=== PATIENT | female | born 1960 | race Caucasian/White ===

== ENCOUNTER 2016-05-31 21:26 | Emergency (ER) | payer OTHER ==
[2016-05-31 21:36] VITALS: BP 145/90; PULSE 72; TEMP 97.5; BMI 29.2
--- NOTE | 2016-05-31 22:41 | PDOC ---
History of Present Illness - General Chief Complaint: Nausea/Vomiting Stated Complaint: VOMITING Time Seen by Provider: 05/31/16 22:10 - History of Present Illness Initial Comments: 05/31/16 22:39 CHIEF COMPLAINT: vomiting x 1 week. HISTORY OF PRESENT ILLNESS: 56 yo F with hx of hypothyroidism, HTN presents to ED with vomiting x 1 week and a "tight sensation to my throat." Patient denies fever, abdominal pain, diarrhea and states she has regular bowel movements daily. She was recently prescribed Omeprazole bid but it has not given her any relief. She denies fever, chills, diarrhea, constipation, any abdominal pain. She states she has daily normal bowel movements. No recent travel or sick contacts. PAST MEDICAL HISTORY: as per HPI FAMILY HISTORY: Denies SOCIAL HISTORY: Denies tobacco, alcohol, illicit drug use. SURGICAL HISTORY: hystercetomy ALLERGIES: No known drug allergies REVIEW OF SYSTEMS General/Constitutional: Denies fever or chills. Denies weakness, weight change. HEENT: "Tightness of throat." Denies change in vision. Denies ear pain or discharge. Denies sore throat. Cardiovascular: Denies chest pain or shortness of breath. Respiratory: Denies cough, wheezing, or hemoptysis. Gastrointestinal: Vomiting x 1 week. diarrhea or constipation. Denies rectal bleeding. Genitourinary: Denies dysuria, frequency, or change in urination. Musculoskeletal: Denies joint or muscle swelling or pain. Denies neck or back pain. Skin and breasts: Denies rash or easy bruising. Neurologic: Denies headache, vertigo, loss of consciousness, or loss of sensation. PHYSICAL EXAM General Appearance: Well-appearing, appropriately dressed. No apparent distress , no intoxication. HEENT: EOMI, PERRLA, normal ENT inspection, normal voice, TMs normal, pharynx normal. No swelling to mouth, tongue, lips, uvula, tonsils. No erythema or exudate to oropharynx. No conjunctival pallor. No photophobia, scleral icterus. Respiratory/Chest: Lungs CTAB. Cardiovascular: RRR. S1, S2. Gastrointestinal/Abdominal: Normal bowel sounds. Abdomen soft, non-distended. No tenderness or rebound tenderness. No organomegaly, pulsatile mass, guarding , hernia, hepatomegaly, splenomegaly. Lymphatic: No adenopathy, tenderness. Musculoskeletal/Extremities: Normal inspection.No tenderness to extremities, pedal edema, swelling, erythema or deformity. Integumentary: Appropriate color, dry, warm. No cyanosis, erythema, jaundice or rash Neurologic: retort setter II-XII intact. Fully oriented, alert. Appropriate mood/affect. Motor strength 5/5. No appreciable EOM palsy, facial droop or sensory deficit. 06/01/16 00:32 Past History - Past Medical History Allergies/Adverse Reactions: Allergies Allergy/AdvReac Type Severity Reaction Status Date / Time meperidine HCl [From Demerol] Allergy Rash Verified 05/31/16 21:34 Penicillins Allergy Hives Verified 05/31/16 21:34 Home Medications: Ambulatory Orders Levothyroxine [Synthroid -] 50 mcg PO DAILY 09/08/14 Lisinopril [Prinivil -] 20 mg PO DAILY 09/08/14 Esomeprazole Magnesium [Nexium 24Hr] 20 mg PO DAILY #14 tablet. 06/01/16 Ondansetron [Zofran *Odt*] 8 mg SL TID PRN #21 od.tablet 06/01/16 HTN: Yes - Psycho/Social/Smoking Cessation Hx Anxiety: No Suicidal Ideation: No Smoking History: Never smoked Have you smoked in the past 12 months: No Information on smoking cessation initiated: No Hx Alcohol Use: No Drug/Substance Use Hx: No Substance Use Type: None *Physical Exam - Vital Signs Last Vital Signs Temp Pulse Resp BP Pulse Ox 97.5 F L 72 14 145/90 98 05/31/16 21:34 05/31/16 21:34 05/31/16 21:34 05/31/16 21:34 05/31/16 21:34 Medical Decision Making - Medical Decision Making 06/01/16 00:34 56 yo F with hx of hypothyroidism and HTN presents to ED with vomiting x 1 week. Abdomen is diffusely nontender on deep palpation, patient is afebrile. -Zofran 4 mg IV -IVF -Pepcid Patient states she is feeling better although she states "I feel like my throat still feels tight." HEENT exam unremarkable - patient has no swelling of uvula, tongue, tonsils. Discussed case with attending MD Bills, who suggest viscous lidocaine and Maalox for patient and discharge with f/u with GI for endoscopy. Advised patient to follow up with GI for endoscopy and further evaluation of globus sensation. Advised patient of signs and symptoms for return to ER; patient verbalized understanding and agrees to plan. *DC/Admit/Observation/Transfer Diagnosis at time of Disposition: Globus sensation - Discharge Dispostion Disposition: HOME Condition at time of disposition: Stable Admit: No - Prescriptions Prescriptions: Esomeprazole Magnesium [Nexium 24Hr] 20 mg PO DAILY #14 tablet. Ondansetron [Zofran *Odt*] 8 mg SL TID PRN #21 od.tablet PRN Reason: Nausea And/Or Vomiting - Referrals Referrals: Krista Fisher MD [Primary Care Provider] - Anthony Calero DO [Staff Physician] - - Patient Instructions Printed Discharge Instructions: DI for Vomiting -- Adult Additional Instructions: Please take medications as prescribed and follow up with neck band operator as discussed. If you experience difficulty breathing or swallowing, abdominal pain , fever, diarrhea, swelling of the lips, mouth, throat, or tongue, or any new or worsening symptoms, please return to the ER.
[2016-05-31] MEDS ORDERED: ONDANSETRON 4 MG/2 ML VIAL IVPUSH ONE (22:43)
[2016-05-31] MEDS ORDERED: FAMOTIDINE 20 MG/50 ML IVPB 50 ML IVPB ONE ×2 (22:43→22:50)
[2016-05-31] MEDS ORDERED: SODIUM CHLORIDE 0.9% 1000 ML INFUS.BAG IV ONE (22:43)
[2016-06-01] MEDS ORDERED: LIDOCAINE VISCOUS 2% ORAL/TOP 20 ML UNIT-DOSE CUP MM ONE (00:37)
[2016-06-01] MEDS ORDERED: MAG HYDROX/AL HYDROX/SIMETH 30 ML UNIT-DOSE CUP PO ONE (00:37)
[2016-06-01] MEDS ORDERED: MAG HYDROX/AL HYDROX/SIMETH 30 ML UNIT-DOSE CUP ONE (00:44)
== END 2016-06-01 00:58 | disposition home or self-care (01) ==
LOC: JER 21:26
DX: F45.8 Other somatoform disorders (principal)
CPT/HCPCS: 99282-25

== ENCOUNTER 2017-10-09 20:55 | Emergency (ER) | payer OTHER ==
[2017-10-09 21:09] VITALS: BP 143/95; PULSE 75; TEMP 98; BMI 29.9
--- NOTE | 2017-10-09 23:50 | PDOC ---
History of Present Illness - General Chief Complaint: Allergic Reaction Stated Complaint: ALLERIC REACTION Time Seen by Provider: 10/09/17 22:29 - History of Present Illness Initial Comments: 57 year old female with recent asthma exacerbation presenting with sore throat and "throat pressure" . Denies issues breathing, swallowing food, or with any daily activities but simple states there is a pressure in her throat occasionally. Denies fevers, chills, nausea, vomiting, diarrhea, constipation, or other symptoms. 10/09/17 23:43 Past History - Past Medical History Allergies/Adverse Reactions: Allergies Allergy/AdvReac Type Severity Reaction Status Date / Time meperidine HCl [From Demerol] Allergy Rash Verified 10/09/17 21:10 Penicillins Allergy Hives Verified 10/09/17 21:10 Home Medications: Ambulatory Orders Levothyroxine [Synthroid -] 50 mcg PO DAILY 09/08/14 Lisinopril [Prinivil -] 20 mg PO DAILY 09/08/14 Esomeprazole Magnesium [Nexium 24Hr] 20 mg PO DAILY #14 tablet. 06/01/16 Ondansetron [Zofran *Odt*] 8 mg SL TID PRN #21 od.tablet 06/01/16 Albuterol 0.083% Nebulizer Patricia [Ventolin 0.083%] 1 neb NEB Q4H 10/09/17 Benzocaine/Menthol [Cepacol Sore Throat Lozenge] 1 each MM BID PRN 5 Days #10 lozenge 10/09/17 HTN: Yes - Immunization History Immunization Up to Date: No - Suicide/Smoking/Psychosocial Hx Smoking History: Never smoked Have you smoked in the past 12 months: No Information on smoking cessation initiated: No Hx Alcohol Use: No Drug/Substance Use Hx: No Substance Use Type: None Review of Systems - Review of Systems Constitutional: No: Chills, Diaphoresis, Fever HEENTM: No: Eye Pain, Blurred Vision, Tearing Respiratory: No: Cough, Orthopnea, Shortness of Breath, Wheezing Cardiac (ROS): No: Chest Pain, Edema, Irregular Heart Rate ABD/GI: No: Diarrhea, Nausea, Vomiting : No: Burning, Dysuria, Discharge Musculoskeletal: No: Back Pain, Muscle Pain, Muscle Weakness Integumentary: No: Flushing, Lesions, Lumps Neurological: No: Headache, Numbness Psychiatric: No: Mood Swings, Change in Appetite *Physical Exam - Vital Signs Last Vital Signs Temp Pulse Resp BP Pulse Ox 98.0 F 75 16 143/95 100 10/09/17 21:07 10/09/17 21:07 10/09/17 21:07 10/09/17 21:07 10/09/17 21:07 - Physical Exam General Appearance: Yes: Nourished, Appropriately Dressed. No: Apparent Distress HEENT: positive: EOMI, RINA, Normal Voice, Symmetrical. negative: Normal ENT Inspection, Pharynx Normal (erythematous oropharynx with slight peritonsilalr swelling. Left cervical lymph node) Neck: positive: Trachea midline, Normal Thyroid, Supple, Lymphadenopathy (L). negative: Tender, Rigid Respiratory/Chest: positive: Lungs Clear, Normal Breath Sounds. negative: Chest Tender, Respiratory Distress, Accessory Muscle Use Cardiovascular: positive: Regular Rhythm, Regular Rate Gastrointestinal/Abdominal: positive: Normal Bowel Sounds, Flat, Soft. negative : Tender Lymphatic: positive: Adenopathy. negative: Tenderness Musculoskeletal: positive: Normal Inspection. negative: Decreased Range of Motion Extremity: positive: Normal Capillary Refill, Normal Inspection, Normal Range of Motion. negative: Tender Integumentary: positive: Normal Color, Dry, Warm Neurologic: positive: Fully Oriented, Alert, Normal Mood/Affect, Normal Response , Motor Strength 5/5 ED Treatment Course - ADDITIONAL ORDERS Additional order review: 10/09/17 22:50 Group A Strep Rapid Antigen - Final Throat Medical Decision Making - Medical Decision Making Rapid strep negative and patient is OK with discharge with cepacol. I explained to her in Malaysian her issues were likely related to a viral infection of her throat. She will be discharged with Cepacol and PCP follow up. 10/09/17 23:54 *DC/Admit/Observation/Transfer Diagnosis at time of Disposition: Sore throat - Discharge Dispostion Disposition: HOME Condition at time of disposition: Improved Decision to Admit order: No - Referrals Referrals: Krista Fisher MD [Primary Care Provider] - - Patient Instructions Printed Discharge Instructions: DI for Viral Pharyngitis Additional Instructions: Tiene enrojecimiento en la parte posterior de la garganta que probablemente se deba a david infeccin viral. Por favor tome las pastillas para la tos y mejorar en pocos pizarro. Por favor, salvador un seguimiento con antonio mdico de cabecera dentro de unos pizarro. Regrese al servicio de urgencias si tiene problemas para respirar , dolor de garganta o fiebre. Por favor, evite los alimentos calientes, picantes o fros. - Post Discharge Activity
--- NOTE | 2017-10-09 23:57 | PDOC ---
Attending Attestation - Resident Resident Name: DawnLexienoranathan - ED Attending Attestation I have performed the following: I have examined & evaluated the patient, The case was reviewed & discussed with the resident, I agree w/resident's findings & plan, Exceptions are as noted - HPI HPI: 10/10/17 00:09 57-year-old female with history of asthma presents to the ER with sore throat and difficulty swallowing after completing course of prednisone for acute asthma exacerbation. Patient denies fever/chills/nausea/vomiting - Physicial Exam PE: 10/10/17 00:09 Patient is awake alert, well-appearing, in no distress, afebrile Normocephalic and atraumatic PERRLA, EOMI Posterior oropharynx is minimally erythematous with several small shallow ulcerations to the hard palate and the tonsils, uvula is midline and is nonedematous; neck is supple, mildly enlarged left anterior cervical lymph node is appreciated; CTA rrr - Medical Decision Making 10/10/17 00:10 57-year-old female with history of asthma presents with signs and symptoms of acute pharyngitis. Patient is strep negative. No airway issues are present at this time. Will discharge with symptomatic relief with outpatient follow-up.
== END 2017-10-10 00:35 | disposition home or self-care (01) ==
LOC: JER 20:55 → JERFT 20:55 → JER 10-10 00:35
DX: J02.9 Acute pharyngitis, unspecified (principal); B97.89 Other viral agents as the cause of diseases classified elsewhere; I10 Essential (primary) hypertension
CPT/HCPCS: 87070; 87430; 99281-25

== ENCOUNTER 2019-03-23 00:09 | Inpatient (IN) | payer OTHER ==
[2019-03-23] MEDS ORDERED: methylPREDNISolone NA SUCC 125 MG/2 ML VIAL IVPUSH ONE (01:17)
[2019-03-23] MEDS ORDERED: ALBUTEROL SO4 2.5/IPRATROPIUM 0.5 INH SOL 3 ML VIAL.NEB. NEB STA (01:17)
--- NOTE | 2019-03-23 01:21 | PDOC ---
Attending Attestation - Resident Resident Name: Ignacio Pate - ED Attending Attestation I have performed the following: I have examined & evaluated the patient, I agree w/resident's findings & plan - HPI HPI: 03/23/19 01:19 59-year-old female with history of asthma complaining of wheezing , no chest pain or fever - Physicial Exam PE: 03/23/19 01:20 agree with resident exam - Medical Decision Making 03/23/19 01:21 59-year-old female with history of asthma with active wheezing Plan for chest x-ray, EKG and labs including BNP and troponin Solu-Medrol 125 mg as well as DuoNeb's x3 have been ordered If improved patient will likely be discharged home
[2019-03-23] MEDS ORDERED: methylPREDNISolone NA SUCC 125 MG/2 ML VIAL ONE (01:25)
[2019-03-23] MEDS ORDERED: ALBUTEROL SO4 2.5/IPRATROPIUM 0.5 INH SOL 3 ML VIAL.NEB. NEB ONE ×3 (01:25→02:25)
--- NOTE | 2019-03-23 01:37 | PDOC ---
History of Present Illness - General Chief Complaint: Shortness of Breath Stated Complaint: DIFFICULTY BREATHNG/ASTHMA Time Seen by Provider: 03/23/19 01:19 History Source: Patient Exam Limitations: No Limitations - History of Present Illness Initial Comments: Priyanka Sheridan is a 59 yo F w a pmh of Asthma, hypothyroidism and HTN presents to the [facility] er with her daughter because she has been wheezing, feels short of breath, and is having a hard time breathing. She states that when she woke up this morning she had a sore throat and some subjective chills but denies having had a fever. She believes she is having an asthma exacerbation because she only wheezes when her asthma sets off. She also says that every time she gets a cold her asthma acts up and she becomes short of breath that usually resolves when she comes to the ER and gets breathing treatments. Denies chest pain, headache, blurry vision, nausea, vomiting, dysuria, frequency , urgency, back pain, neck pain PCP: Krista Fisher PSH: Hysterectomy Social Hx: Denies smoking, drinking, or other substance usage Allergies: NKA, NKDA Past History - Past Medical History Allergies/Adverse Reactions: Allergies Allergy/AdvReac Type Severity Reaction Status Date / Time meperidine HCl [From Demerol] Allergy Rash Verified 03/23/19 00:41 Penicillins Allergy Hives Verified 03/23/19 00:41 Home Medications: Ambulatory Orders Levothyroxine [Synthroid -] 50 mcg PO DAILY 09/08/14 Lisinopril [Prinivil -] 20 mg PO DAILY 09/08/14 Esomeprazole Magnesium [Nexium 24Hr] 20 mg PO DAILY #14 tablet. 06/01/16 Ondansetron [Zofran *Odt*] 8 mg SL TID PRN #21 od.tablet 06/01/16 Albuterol 0.083% Nebulizer Patricia [Ventolin 0.083%] 1 neb NEB Q4H 10/09/17 Benzocaine/Menthol [Cepacol Sore Throat Lozenge] 1 each MM BID PRN 5 Days #10 lozenge 10/09/17 Asthma: Yes COPD: No HTN: Yes - Immunization History Immunization Up to Date: No - Psycho Social/Smoking Cessation Hx Smoking History: Never smoked Have you smoked in the past 12 months: No Hx Alcohol Use: No Drug/Substance Use Hx: No Substance Use Type: None Review of Systems - Review of Systems Able to Perform ROS?: Yes Comments:: CONSTITUTIONAL: Absent: fever, no chills, no fatigue EYES: Absent: visual changes ENT: Present: Sore throat Absent: ear pain CARDIOVASCULAR: Absent: chest pain, no palpitations RESPIRATORY: Present: Cough, SOB GI: Absent: abdominal pain, no nausea, no vomiting, no constipation, no diarrhea GENITOURINARY: Absent: dysuria, no frequency, no hematuria MUSKULOSKELETAL: Absent: back pain, no arthralgia, no myalgia SKIN: Absent: rash NEURO: Absent: headache *Physical Exam - Vital Signs Last Vital Signs Temp Pulse Resp BP Pulse Ox 98.1 F 77 18 140/98 96 03/23/19 00:41 03/23/19 00:41 03/23/19 00:41 03/23/19 00:41 03/23/19 00:41 - Physical Exam GENERAL: Well-appearing, well-nourished. Mild distress. HEENT: Normocephalic, atraumatic. PERRL, EOM intact. CARDIOVASCULAR: Normal S1, S2. Regular rate and rhythm. PULMONARY: Diffuse expiratory wheezing, no rales or ronchi. ABDOMEN: Soft, non-distended, non-tender. EXTREMITIES: Normal ROM in all four extremities. No gross deformities. SKIN: Warm, dry. No rash NEUROLOGICAL: No focal neurological deficits. ED Treatment Course - LABORATORY CBC & Chemistry Diagram: 03/23/19 01:30 03/23/19 01:30 Medical Decision Making - Medical Decision Making Priyanka Sheridan is a 59 yo F w a pmh of Asthma, hypothyroidism and HTN presents to the [facility] er with her daughter because she has been wheezing, feels short of breath, and is having a hard time breathing. She states that when she woke up this morning she had a sore throat and some subjective chills but denies having had a fever. She believes she is having an asthma exacerbation because she only wheezes when her asthma sets off. She also says that every time she gets a cold her asthma acts up and she becomes short of breath that usually resolves when she comes to the ER and gets breathing treatments. Vital Signs Temp Pulse Resp BP Pulse Ox 98.1 F 77 18 140/98 96 03/23/19 00:41 03/23/19 00:41 03/23/19 00:41 03/23/19 00:41 03/23/19 00:41 DDx IBNLT: ACS/LA, asthma, PNA, pneumothorax, URI Plan: Labs, EKG, CXR, duonebs, steroids, re-assess. EKG: NS rate of 69, narrow complexes, normal axis, no hypertrophy, no ST elevations or depressions, TWI in lead 3, no Q waves, QTc 428, WA 132 CXR: Unremarkable Labs: BNP and trop WNL Re-assessment: Patient persistently wheezing after receiving duonebs and still short of breath, will admit to hospital for asthma exacerbation Disposition: Med/Surg Discharge - Discharge Information Problems reviewed: Yes Clinical Impression/Diagnosis: Asthma exacerbation Qualifiers: Asthma severity: unspecified severity Asthma persistence: unspecified Qualified Code(s): J45.901 - Unspecified asthma with (acute) exacerbation Condition: Stable - Admission Yes - Follow up/Referral Referrals: Krista Fisher MD [Primary Care Provider] - - Patient Discharge Instructions - Post Discharge Activity
[2019-03-23 02:11] LABS: HEMATOCRIT 37.8 % (32.4-45.2); HEMOGLOBIN 12.9 GM/dL (10.7-15.3); MCHC 34.3 g/dl (32.0-36.0); MEAN CELL VOLUME 87.6 fl (80-96); MEAN PLT VOLUME 8.7 fl (7.5-11.1); PLATELET COUNT 273 K/MM3 (134-434); RBC 4.32 M/mm3 (3.60-5.2); RDW 13.7 % (11.6-15.6); WHITE BLOOD COUNT 9.5 K/mm3 (4.0-10.0)
[2019-03-23 02:20] LABS: N-TERMINAL BNP 49.1 pg/ml (5-125)
[2019-03-23 02:50] LABS: ALBUMIN 3.4 g/dl (3.4-5.0); BILIRUBIN,TOTAL 0.2 mg/dL (0.2-1); BLOOD UREA NITROGEN 16.1 mg/dL (7-18); CALCIUM 9.4 mg/dL (8.5-10.1); CREATININE 1.1 mg/dL (0.55-1.3); POTASSIUM 4.6 mmol/L (3.5-5.1); TOT PROT 7.2 g/dl (6.4-8.2)
--- NOTE | 2019-03-23 04:33 | HP ---
Admitting History and Physical - Primary Care Physician PCP: Dr. Herndon - Admission Chief Complaint: wheezing, sob History of Present Illness: 59 year old female with PMHx of Asthma, hypothyroidism and HTN presents to the [facility] ER with her daughter because she has been wheezing, feels short of breath, and is having a hard time breathing. She states that when she woke up this morning she had a sore throat and some subjective chills but denies having had a fever. She believes she is having an asthma exacerbation because she only wheezes when her asthma sets off. Patient denies chest pain, headache, blurry vision, nausea, vomiting, dysuria, frequency, urgency, back pain, neck pain History Source: Patient, Family Member Limitations to Obtaining History: No Limitations - Past Medical History Cardiovascular: Yes: HTN Pulmonary: Yes: Asthma Gastrointestinal: Yes: GERD Endocrine: Yes: Hypothyroidism - Past Surgical History Past Surgical History: Yes: Hysterectomy - Smoking History Smoking history: Never smoked Have you smoked in the past 12 months: No - Alcohol/Substance Use Hx Alcohol Use: No History of Substance Use: reports: None - Social History Usual Living Arrangement: Yes: Alone ADL: Independent History of Recent Travel: No Home Medications - Allergies Allergies/Adverse Reactions: Allergies Allergy/AdvReac Type Severity Reaction Status Date / Time meperidine HCl [From Demerol] Allergy Rash Verified 03/23/19 00:41 Penicillins Allergy Hives Verified 03/23/19 00:41 - Home Medications Home Medications: Ambulatory Orders Levothyroxine [Synthroid -] 50 mcg PO DAILY 09/08/14 Lisinopril [Prinivil -] 20 mg PO DAILY 09/08/14 Esomeprazole Magnesium [Nexium 24Hr] 20 mg PO DAILY #14 tablet. 06/01/16 Ondansetron [Zofran *Odt*] 8 mg SL TID PRN #21 od.tablet 06/01/16 Albuterol 0.083% Nebulizer Patricia [Ventolin 0.083%] 1 neb NEB Q4H 10/09/17 Benzocaine/Menthol [Cepacol Sore Throat Lozenge] 1 each MM BID PRN 5 Days #10 lozenge 10/09/17 Family Medical History Family History: Denies Review of Systems - Review of Systems Constitutional: reports: Chills Eyes: reports: No Symptoms HENT: reports: Throat Pain Neck: reports: No Symptoms Cardiovascular: reports: No Symptoms Respiratory: reports: SOB, Wheezing Gastrointestinal: reports: No Symptoms Genitourinary: reports: No Symptoms Musculoskeletal: reports: No Symptoms Integumentary: reports: No Symptoms Neurological: reports: No Symptoms Endocrine: reports: No Symptoms Hematology/Lymphatic: reports: No Symptoms Physical Examination Vital Signs: Vital Signs Temperature 98.1 F 03/23/19 00:41 Pulse Rate 77 03/23/19 00:41 Respiratory Rate 18 03/23/19 00:41 Blood Pressure 140/98 03/23/19 00:41 O2 Sat by Pulse Oximetry (%) 96 03/23/19 00:41 Constitutional: Yes: Calm, Mild Distress Eyes: Yes: Conjunctiva Clear, EOM Intact HENT: Yes: Atraumatic, Normocephalic Neck: Yes: Supple, Trachea Midline Cardiovascular: Yes: Regular Rate and Rhythm Respiratory: Yes: Regular, On Nasal O2, Wheezes Gastrointestinal: Yes: Normal Bowel Sounds, Soft Musculoskeletal: Yes: WNL Extremities: Yes: WNL Edema: No Peripheral Pulses WNL: Yes Neurological: Yes: Alert, Oriented Labs: CBC, BMP 03/23/19 01:30 03/23/19 01:30 Imaging - Results Chest X-ray: Report Reviewed (CXR: Unremarkable) EKG: Report Reviewed (EKG: NS rate of 69, no ST elevations or depressions) Other: Report Reviewed (BNP and trop WNL) Problem List - Problems (1) Asthma exacerbation Code(s): J45.901 - UNSPECIFIED ASTHMA WITH (ACUTE) EXACERBATION Qualifiers: Asthma severity: unspecified severity Asthma persistence: unspecified Qualified Code(s): J45.901 - Unspecified asthma with (acute) exacerbation (2) Hypothyroid Code(s): E03.9 - HYPOTHYROIDISM, UNSPECIFIED (3) GERD (gastroesophageal reflux disease) Code(s): K21.9 - GASTRO-ESOPHAGEAL REFLUX DISEASE WITHOUT ESOPHAGITIS (4) Hypertension Code(s): I10 - ESSENTIAL (PRIMARY) HYPERTENSION Assessment/Plan 59 year old female with PMHx of Asthma, hypothyroidism and HTN presents to the [facility] ER with her daughter because she has been wheezing, feels short of breath, and is having a hard time breathing. # Asthma Exacerbation CXR: No acute finding BNP and trop WNL EKG: NS rate of 69, no ST elevations or depressions In ED given: nebs, soul-medrol x1 -Continue with methyprednisolone q 8 hours, transition to PO steriods as tolerated -Albuterol 0.083% Nebulizer Patricia 1 neb NEB Q4H - O2 3l/min - monitor spo2 # HTN Lisinopril 20 mg PO DAILY # Hypothyrodism -Levothyroxine 50 mcg PO DAILY # GERD -Esomeprazole Magnesium 20 mg PO DAILY Diet: cardiac diet VTE: Heparin SQ Dispo: Med-Surg Visit type - Emergency Visit Emergency Visit: Yes Care time: The patient presented to the Emergency Department on the above date and was hospitalized for further evaluation of their emergent condition. - New Patient This patient is new to me today: Yes Date on this admission: 03/23/19 - Critical Care Critical Care patient: No
[2019-03-23] MEDS ORDERED: ACETAMINOPHEN 325 MG TABLET (FP) PO PRN (04:41)
[2019-03-23] MEDS ORDERED: methylPREDNISolone NA SUCC 40 MG/1 ML VIAL IVPUSH SCH (04:45)
[2019-03-23] MEDS ORDERED: ALBUTEROL SO4 0.083% IH SOL 2.5 MG/3 ML VIAL.NEB. NEB ONE ×2 (05:06→07:49)
[2019-03-23] MEDS: ALBUTEROL SO4 0.083% IH SOL 2.5 MG/3 ML VIAL.NEB. NEB SCH ×2 (05:07→08:18)
[2019-03-23] MEDS ORDERED: LEVOTHYROXINE NA 25 MCG TABLET (FP) ONE (07:03)
[2019-03-23] MEDS: LEVOTHYROXINE NA 50 MCG TABLET (FP) PO SCH (07:07)
[2019-03-23 07:09] LABS: HEMOGLOBIN 13.2 GM/dL (10.7-15.3); MCH 29.8 pg (25.7-33.7); MCHC 33.9 g/dl (32.0-36.0); MEAN CELL VOLUME 87.9 fl (80-96); MEAN PLT VOLUME 8.5 fl (7.5-11.1); PLATELET COUNT 285 K/MM3 (134-434); RBC 4.44 M/mm3 (3.60-5.2); RDW 13.7 % (11.6-15.6); WHITE BLOOD COUNT 12.8 K/mm3 (4.0-10.0)
[2019-03-23 07:43] LABS: BLOOD UREA NITROGEN 15.4 mg/dL (7-18); CALCIUM 9.6 mg/dL (8.5-10.1); CREATININE 1.1 mg/dL (0.55-1.3); POTASSIUM 3.7 mmol/L (3.5-5.1)
[2019-03-23] MEDS ORDERED: LISINOPRIL 20 MG TABLET (FP) ONE (07:50)
[2019-03-23] MEDS ORDERED: methylPREDNISolone NA SUCC 40 MG/1 ML VIAL ONE (07:50)
[2019-03-23] MEDS ORDERED: HEPARIN NA (PORCINE) 5,000 UNITS/ML 1ML VIAL ONE (07:50)
[2019-03-23] MEDS ORDERED: PANTOPRAZOLE 40 MG TABLET (FP) ONE (07:50)
[2019-03-23] MEDS: methylPREDNISolone NA SUCC 40 MG/1 ML VIAL IVPUSH SCH ×2 (09:15→17:15)
[2019-03-23] MEDS: HEPARIN NA (PORCINE) 5,000 UNITS/ML 1ML VIAL SQ SCH ×2 (09:15→21:59)
[2019-03-23] MEDS: PANTOPRAZOLE 20 MG TABLET (FP) PO SCH (09:15)
[2019-03-23] MEDS: LISINOPRIL 20 MG TABLET (FP) PO SCH (09:15)
[2019-03-23] MEDS ORDERED: PATIENT'S OWN MEDICATION (NON-FORMULARY) (Esomeprazole Magnesium [Nexium 24hr] 20 MG) PO SCH (10:00)
--- NOTE | 2019-03-23 10:04 | PN ---
Progress Note, Physician Chief Complaint: Asthma Exacerbation SOB History of Present Illness: Previous notes and events reviewed awake and alert NAD sts her breathing is improving denies SOB with exertion complain of non-productive cough - Current Medication List Current Medications: Active Medications Acetaminophen (Tylenol -) 650 mg PO Q6H PRN PRN Reason: PAIN LEVEL 1-5 Albuterol Sulfate (Ventolin 0.083% Nebulizer Soln -) 1 amp NEB RQ4H [facility] Last Admin: 03/23/19 08:18 Dose: 1 amp Heparin Sodium (Porcine) (Heparin -) 5,000 unit SQ BID [facility] Last Admin: 03/23/19 09:15 Dose: 5,000 unit Levothyroxine Sodium (Synthroid -) 50 mcg PO ACBK [facility] Last Admin: 03/23/19 07:07 Dose: 50 mcg Lisinopril (Prinivil) 20 mg PO DAILY [facility] Last Admin: 03/23/19 09:15 Dose: 20 mg Methylprednisolone Sodium Succinate (Solu-Medrol -) 40 mg IVPUSH Q8H-IV [facility] Last Admin: 03/23/19 09:15 Dose: 40 mg Pantoprazole Sodium (Protonix -) 20 mg PO DAILY [facility] Last Admin: 03/23/19 09:15 Dose: 20 mg - Objective Vital Signs: Vital Signs Temperature 98.5 F 03/23/19 09:19 Pulse Rate 105 H 03/23/19 09:19 Respiratory Rate 20 03/23/19 09:19 Blood Pressure 130/67 03/23/19 09:19 O2 Sat by Pulse Oximetry (%) 99 03/23/19 09:19 Constitutional: Yes: No Distress, Calm Eyes: Yes: Conjunctiva Clear HENT: Yes: Atraumatic Cardiovascular: Yes: Regular Rate and Rhythm Respiratory: Yes: Regular, Diminished Gastrointestinal: Yes: Normal Bowel Sounds, Soft Musculoskeletal: Yes: WNL Extremities: Yes: WNL Edema: No Neurological: Yes: Alert, Oriented Psychiatric: Yes: Alert, Oriented Labs: CBC, BMP 03/23/19 05:25 03/23/19 05:25 Problem List - Problems (1) Asthma exacerbation Assessment/Plan: -Pulm consult -Bronchodilators -CXR unremarkable -keep SpO2 >90% -O2 via NC -IV medrol Code(s): J45.901 - UNSPECIFIED ASTHMA WITH (ACUTE) EXACERBATION Qualifiers: Asthma severity: unspecified severity Asthma persistence: unspecified Qualified Code(s): J45.901 - Unspecified asthma with (acute) exacerbation (2) GERD (gastroesophageal reflux disease) Assessment/Plan: -Pantoprazole Code(s): K21.9 - GASTRO-ESOPHAGEAL REFLUX DISEASE WITHOUT ESOPHAGITIS (3) Hypothyroid Assessment/Plan: -Levothyroxine Code(s): E03.9 - HYPOTHYROIDISM, UNSPECIFIED (4) Hypertension Assessment/Plan: -Lisinopril -low Na diet Code(s): I10 - ESSENTIAL (PRIMARY) HYPERTENSION Assessment/Plan see problem list dvt ppx
[2019-03-23] MEDS ORDERED: ALBUTEROL SO4 0.083% IH SOL 2.5 MG/3 ML VIAL.NEB. NEB PRN (10:38)
--- NOTE | 2019-03-23 10:38 | CON.PULM ---
Consult Consult Specialty:: PULMONARY Referred by:: LINDA Davis Reason for Consultation:: asthma - History of Present Illness Chief Complaint: shortness of breath History of Present Illness: 59yo female with h/o HTN, asthma, hypothyroidism who was admitted with worsening shortness of breath starting last night. States that it started after being exposed to hookah smoke. +cough productive of white sputum and wheezing. No fevers, chills or sweats. 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 She is a former smoker, diagnosed with asthma as an adult. Last hospitalized 10 years ago , last on prednisone 1 year ago. Not on maintenance inhalers, rarely uses her albuterol. - History Source History Provided By: Patient, Family Member Limitations to Obtaining History: Language Barrier - Past Medical History Cardio/Vascular: Yes: HTN Pulmonary: Yes: Asthma Gastrointestinal: Yes: GERD Endocrine: Yes: Hypothyroidism - Past Surgical History Past Surgical History: Yes: Hysterectomy - Alcohol/Substance Use Hx Alcohol Use: No History of Substance Use: reports: None - Smoking History Smoking history: Never smoked Have you smoked in the past 12 months: No - Social History ADL: Independent History of Recent Travel: No Home Medications - Allergies Allergies/Adverse Reactions: Allergies Allergy/AdvReac Type Severity Reaction Status Date / Time meperidine HCl [From Demerol] Allergy Rash Verified 03/23/19 00:41 Penicillins Allergy Hives Verified 03/23/19 00:41 - Home Medications Home Medications: Ambulatory Orders Levothyroxine [Synthroid -] 50 mcg PO DAILY 09/08/14 Lisinopril [Prinivil -] 5 mg PO DAILY 09/08/14 Albuterol 0.083% Nebulizer Patricia [Ventolin 0.083%] 1 neb NEB Q4H 10/09/17 Esomeprazole Magnesium [Nexium 24Hr] 20 mg PO PRN 03/23/19 Review of Systems - Review of Systems Constitutional: denies: Chills, Fever, Weakness Eyes: denies: Recent Change in Vision HENT: denies: Nasal Congestion, Throat Pain Neck: denies: Stiffness, Tenderness Cardiovascular: reports: Shortness of Breath. denies: Chest Pain, Edema Respiratory: reports: Cough, SOB, Wheezing. denies: Hemoptysis Gastrointestinal: denies: Abdominal Pain, Nausea, Vomiting Genitourinary: denies: Dysuria, Hematuria Neurological: denies: Dizziness, Headache Endocrine: denies: Unexplained Weight Loss Physical Exam Vital Sings: Vital Signs Temperature 98.5 F 03/23/19 09:19 Pulse Rate 105 H 03/23/19 09:19 Respiratory Rate 20 03/23/19 09:19 Blood Pressure 130/67 03/23/19 09:19 O2 Sat by Pulse Oximetry (%) 99 03/23/19 09:19 Constitutional: Yes: Calm Eyes: Yes: Conjunctiva Clear, EOM Intact HENT: Yes: Atraumatic, Normocephalic Neck: Yes: Supple, Trachea Midline Cardiovascular: Yes: Regular Rate and Rhythm Respiratory: Yes: Wheezes (scattered) ...Clubbing: No Gastrointestinal: Yes: Normal Bowel Sounds, Soft. No: Tenderness Edema: No Neurological: Yes: Alert, Oriented Labs: CBC, BMP 03/23/19 05:25 03/23/19 05:25 Imaging - Results Chest X-ray: Report Reviewed, Image Reviewed (no infiltrates) Problem List - Problems (1) Asthma exacerbation Code(s): J45.901 - UNSPECIFIED ASTHMA WITH (ACUTE) EXACERBATION Qualifiers: Asthma severity: unspecified severity Asthma persistence: unspecified Qualified Code(s): J45.901 - Unspecified asthma with (acute) exacerbation Assessment/Plan Acute Asthma Exacerbation HTN Hypothyroidism - IV medrol - can likely change to PO prednisone 40mg daily in AM to complete 5 days - inhaled bronchodilators - O2 as needed - DVT prophylaxis Thank you for this consult Lb Rodrigues MD
--- NOTE | 2019-03-23 10:43 | EKG ---
Test Reason : Blood Pressure : / mmHG Vent. Rate : 069 BPM Atrial Rate : 069 BPM P-R Int : 132 ms QRS Dur : 084 ms QT Int : 400 ms P-R-T Axes : -29 020 017 degrees QTc Int : 428 ms NORMAL SINUS RHYTHM NORMAL ECG NO PREVIOUS ECGS AVAILABLE Confirmed by JOSSIE MEEKS MD ([id number]) on 03/23/2019 10:43:15 AM Referred By: Confirmed By:JOSSIE MEEKS MD
[2019-03-23 12:04] VITALS: BMI 29.6
[2019-03-23] MEDS: ALBUTEROL SO4 2.5/IPRATROPIUM 0.5 INH SOL 3 ML VIAL.NEB. NEB SCH ×3 (13:02→21:10)
[2019-03-23] MEDS ORDERED: PT OWN MED DRAWER 7, Y5N ONE (19:47)
[2019-03-24] MEDS: methylPREDNISolone NA SUCC 40 MG/1 ML VIAL IVPUSH SCH ×2 (01:31→10:50)
[2019-03-24] MEDS ORDERED: INSULIN (NOVOLOG) ASPART 100 UNITS/ML 10ML VIAL ONE (05:34)
[2019-03-24] MEDS: LEVOTHYROXINE NA 50 MCG TABLET (FP) PO SCH (05:59)
[2019-03-24 08:13] LABS: HEMATOCRIT 36.8 % (32.4-45.2); HEMOGLOBIN 12.4 GM/dL (10.7-15.3); MCH 29.6 pg (25.7-33.7); MCHC 33.6 g/dl (32.0-36.0); MEAN CELL VOLUME 87.9 fl (80-96); MEAN PLT VOLUME 8.7 fl (7.5-11.1); PLATELET COUNT 285 K/MM3 (134-434); RBC 4.19 M/mm3 (3.60-5.2); WHITE BLOOD COUNT 23.9 K/mm3 (4.0-10.0)
[2019-03-24 08:31] LABS: ALBUMIN 3.2 g/dl (3.4-5.0); BILIRUBIN,TOTAL 0.2 mg/dL (0.2-1); BLOOD UREA NITROGEN 14.8 mg/dL (7-18); CALCIUM 9.6 mg/dL (8.5-10.1); CREATININE 0.9 mg/dL (0.55-1.3); POTASSIUM 4.4 mmol/L (3.5-5.1); TOT PROT 6.9 g/dl (6.4-8.2)
[2019-03-24] MEDS: ALBUTEROL SO4 2.5/IPRATROPIUM 0.5 INH SOL 3 ML VIAL.NEB. NEB SCH ×2 (08:36→11:57)
--- NOTE | 2019-03-24 09:55 | DS ---
Physical Examination Vital Signs: Vital Signs Temperature 97.4 F L 03/24/19 06:00 Pulse Rate 107 H 03/24/19 06:00 Respiratory Rate 20 03/24/19 06:00 Blood Pressure 120/73 03/24/19 06:00 O2 Sat by Pulse Oximetry (%) 99 03/23/19 13:39 Findings/Remarks: Laboratory Results - last 24 hr 03/24/19 03/24/19 06:50 06:50 WBC 23.9 H RBC 4.19 Hgb 12.4 Hct 36.8 MCV 87.9 MCH 29.6 MCHC 33.6 RDW 14.0 Plt Count 285 MPV 8.7 Sodium 141 Potassium 4.4 Chloride 107 Carbon Dioxide 25 Anion Gap 9 BUN 14.8 Creatinine 0.9 Est GFR (CKD-EPI)AfAm 79.98 Est GFR (CKD-EPI)NonAf 69.01 Random Glucose 159 H Calcium 9.6 Total Bilirubin 0.2 AST 12 L ALT 18 Alkaline Phosphatase 60 Total Protein 6.9 Albumin 3.2 L Home Medication List Medication Instructions Recorded Confirmed Type Levothyroxine [Synthroid -] 50 mcg PO DAILY 09/08/14 03/23/19 History Lisinopril [Prinivil] 5 mg PO DAILY 09/08/14 03/23/19 History Albuterol 0.083% Nebulizer Patricia 1 neb NEB Q4H 10/09/17 03/23/19 History [Ventolin 0.083%] Esomeprazole Magnesium [Nexium 20 mg PO PRN 03/23/19 03/23/19 History 24Hr] Active Medications Generic Name Dose Route Start Last Admin Trade Name Judd PRN Reason Stop Dose Admin Acetaminophen 650 mg 03/23/19 04:41 Tylenol - PO Q6H PRN PAIN LEVEL 1-5 Albuterol Sulfate 1 amp 03/23/19 10:38 03/24/19 01:50 Ventolin 0.083% Nebulizer Soln - NEB 1 amp RQ4H PRN Administration SHORT OF BREATH/WHEEZING Albuterol/Ipratropium 1 amp 03/23/19 12:00 03/24/19 08:36 Duoneb - NEB 1 amp RQID ASAD Administration Heparin Sodium (Porcine) 5,000 unit 03/23/19 10:00 03/23/19 21:59 Heparin - SQ 5,000 unit BID ASAD Administration Levothyroxine Sodium 50 mcg 03/23/19 07:00 03/24/19 05:59 Synthroid - PO 50 mcg ACBK ASAD Administration Lisinopril 20 mg 03/23/19 10:00 03/23/19 09:15 Prinivil PO 20 mg DAILY [facility] Administration Methylprednisolone Sodium Succinate 40 mg 03/23/19 10:00 03/24/19 01:31 Solu-Medrol - IVPUSH 40 mg Q8H-IV [facility] Administration Pantoprazole Sodium 20 mg 03/23/19 10:00 03/23/19 09:15 Protonix - PO 20 mg DAILY ASAD Administration Constitutional: Yes: No Distress, Calm Eyes: Yes: Conjunctiva Clear HENT: Yes: Atraumatic Cardiovascular: Yes: Regular Rate and Rhythm Respiratory: Yes: Regular, Diminished Gastrointestinal: Yes: Normal Bowel Sounds, Soft Musculoskeletal: Yes: WNL Extremities: Yes: WNL Edema: No Neurological: Yes: Alert, Oriented Psychiatric: Yes: Alert, Oriented Labs: CBC, BMP 03/24/19 06:50 03/24/19 06:50 Discharge Summary Problems reviewed: Yes Reason For Visit: EXACERBATION OF ASTHMA Current Active Problems Asthma exacerbation (Acute) GERD (gastroesophageal reflux disease) (Acute) Hypothyroid (Acute) Hospital Course: 59 year old female with PMHx of Asthma, hypothyroidism and HTN presents to the [facility] ER with her daughter because she has been wheezing, feels short of breath, and is having a hard time breathing. She states that when she woke up this morning she had a sore throat and some subjective chills but denies having had a fever. She believes she is having an asthma exacerbation because she only wheezes when her asthma sets off. Patient denies chest pain, headache, blurry vision, nausea, vomiting, dysuria, frequency, urgency, back pain, neck pain. Patien received medrol IV and was evaluated by Pulmonary. CXR is negative for pneumonia. Patient states breathing better. Condition: Stable - Instructions Diet, Activity, Other Instructions: Follow up with PMD in 1 week Follow up with Pulmonary Dr Rodrigues in 2 weeks continue prednisone 40mg x 5 days continue with medication as prescribed return to ER if develop severe pain, respiratory distress, chest pain Referrals: Krista Fisher MD [Primary Care Provider] - Disposition: HOME - Home Medications Comprehensive Discharge Medication List: Ambulatory Orders Levothyroxine [Synthroid -] 50 mcg PO DAILY 09/08/14 Lisinopril [Prinivil] 5 mg PO DAILY 09/08/14 Albuterol 0.083% Nebulizer Patricia [Ventolin 0.083%] 1 neb NEB Q4H 10/09/17 Esomeprazole Magnesium [Nexium 24Hr] 20 mg PO PRN 03/23/19 Albuterol 0.083% Nebulizer Patricia [Ventolin 0.083% Nebulizer Soln -] 1 amp NEB RQ4H PRN #45 amp 03/24/19 Albuterol 2.5/Ipratropium 0.5 [Duoneb -] 1 amp NEB RQID #45 amp 03/24/19 predniSONE [Deltasone -] 40 mg PO DAILY #10 tablet 03/24/19
[2019-03-24 10:50] VITALS: BP 142/71; PULSE 77; TEMP 98.1
[2019-03-24] MEDS: LISINOPRIL 20 MG TABLET (FP) PO SCH (10:50)
[2019-03-24] MEDS: HEPARIN NA (PORCINE) 5,000 UNITS/ML 1ML VIAL SQ SCH (10:50)
[2019-03-24] MEDS: PANTOPRAZOLE 20 MG TABLET (FP) PO SCH (10:50)
== END 2019-03-24 13:15 | disposition home or self-care (01) | DRG 203 ==
LOC: JER 00:09 → JERBED 03:06 → J8W 09:39
PROVIDERS: ADMIT Family Medicine; ATTEND Family Medicine
DX: J45.901 Unspecified asthma with (acute) exacerbation (principal); E03.9 Hypothyroidism, unspecified; K21.9 Gastro-esophageal reflux disease without esophagitis; I10 Essential (primary) hypertension
CPT/HCPCS: 36415; 71045-TC-FY; 80048; 80053; 83880; 84443; 84484; 85027; 93005; 93010; 94640; 99285-25; J1644

== ENCOUNTER 2019-03-29 21:30 | Emergency (ER) | payer OTHER ==
[2019-03-29 21:53] VITALS: TEMP 98.2; BMI 29.6
--- NOTE | 2019-03-29 21:56 | PDOC ---
History of Present Illness <Jair Boyd - Last Filed: 03/29/19 23:25> - General History Source: Patient, Pt declined Financial Operations Clerk (daughter translated, pt refused service) Exam Limitations: No Limitations - History of Present Illness Initial Comments: Pt is a 59 yo F, with PMH asthma, HTN, hypothyroidism, and GERD, who is presenting from home with complaints of nausea and sour taste in her mouth since this afternoon. Pt states she was recently admitted at [facility] for her asthma , and her breathing has been better since that time. Pt is supposed to take omeprazole BID, but takes it "whenever she feels nauseous". Pt also took mylanta at home with minimal relief. Pt is scheduled a PCP appointment with GI f /u and endoscopy pending. Pt has been tolerating PO intake, and has not cut out spicy or acidic foods as her PCP recommended. Pt denies any fevers/chills, headache, vision changes, syncope, chest pain, palpitations, SOB, vomiting, abdominal pain, urinary symptoms, diarrhea/constipation, or leg swelling. Allergies: demerol, PCN (hives) PCP: Dr. Herndon Pulasuncion: Dr. Rodrigues Social: Pt denies any cigarette, alcohol, or drug use. Pt denies any recent travel or sick contacts. Surgical: Family: no relevant history. 03/30/19 02:18 03/30/19 02:26 <Anna Brantley - Last Filed: 03/30/19 02:34> - General Chief Complaint: Nausea/Vomiting Stated Complaint: VOMITING Time Seen by Provider: 03/29/19 21:56 Past History <Jair Boyd - Last Filed: 03/29/19 23:25> - Travel Traveled outside of the country in the last 30 days: No Close contact w/someone who was outside of country & ill: No - Past Medical History Asthma: Yes COPD: No CHF: Yes HTN: Yes - Immunization History Immunization Up to Date: No - Psycho Social/Smoking Cessation Hx Smoking History: Never smoked Have you smoked in the past 12 months: No Information on smoking cessation initiated: No Hx Alcohol Use: No Drug/Substance Use Hx: No Substance Use Type: None Hx Substance Use Treatment: No <Anna Brantley - Last Filed: 03/30/19 02:34> - Past Medical History Allergies/Adverse Reactions: Allergies Allergy/AdvReac Type Severity Reaction Status Date / Time meperidine HCl [From Demerol] Allergy Rash Verified 03/29/19 21:53 Penicillins Allergy Hives Verified 03/29/19 21:53 Home Medications: Ambulatory Orders Levothyroxine [Synthroid -] 50 mcg PO DAILY 09/08/14 Lisinopril [Prinivil] 5 mg PO DAILY 09/08/14 Albuterol 0.083% Nebulizer Patricia [Ventolin 0.083%] 1 neb NEB Q4H 10/09/17 Esomeprazole Magnesium [Nexium 24Hr] 20 mg PO PRN 03/23/19 Albuterol 0.083% Nebulizer Patricia [Ventolin 0.083% Nebulizer Soln -] 1 amp NEB RQ4H PRN #45 amp 03/24/19 Albuterol 2.5/Ipratropium 0.5 [Duoneb -] 1 amp NEB RQID #45 amp 03/24/19 predniSONE [Deltasone -] 40 mg PO DAILY #10 tablet 03/24/19 Ondansetron [Zofran *Odt*] 4 mg SL BID #14 od.tablet 03/29/19 Abd/GI Specific PMHX - Complaint Specific PMHX Colitis: No Diverticulitis: No Gall Bladder Disease: No GERD: Yes Hepatitis: No Irritable Bowel Synd (IBS): No Pancreatitis: No GI Ulcer Disease: No <Anna Brantley - Last Filed: 03/30/19 02:34> Review of Systems - Review of Systems Able to Perform ROS?: Yes Is the patient limited Honduran proficient: No Constitutional: Yes: Weight Stable. No: Chills, Diaphoresis, Fever, Loss of Appetite, Malaise, Weakness HEENTM: No: Recent change in vision, Nose Congestion, Throat Pain, Throat Swelling, Difficulty Swallowing Respiratory: No: Cough, Orthopnea, Shortness of Breath Cardiac (ROS): No: Chest Pain, Edema, Irregular Heart Rate, Lightheadedness, Palpitations, Syncope, Chest Tightness ABD/GI: Yes: Nausea, Indigestion. No: Abdominal Distended, Constipated, Diarrhea, Poor Appetite, Poor Fluid Intake, Vomiting, Abdominal cramping : No: Burning, Dysuria, Frequency, Flank Pain, Hematuria, Pain, Urgency Musculoskeletal: No: Back Pain, Joint Pain, Muscle Pain, Muscle Weakness Integumentary: No: Rash Neurological: No: Headache, Numbness, Weakness, Unsteady Gait, Dizziness Psychiatric: No: Sleep Pattern Change, Change in Appetite Endocrine: No: Increased Urine, Change in Weight Hematologic/Lymphatic: No: Anemia, Blood Clots, Easy Bleeding, Easy Bruising All Other Systems: Reviewed and Negative <Anna Brantley - Last Filed: 03/30/19 02:34> *Physical Exam - Vital Signs Last Vital Signs Temp Pulse Resp BP Pulse Ox 98.2 F 74 18 172/71 H 100 03/29/19 21:51 03/29/19 21:51 03/29/19 21:51 03/29/19 21:51 03/29/19 21:51 <Jair Boyd - Last Filed: 03/29/19 23:25> - Vital Signs Last Vital Signs Temp Pulse Resp BP Pulse Ox 98.2 F 74 18 172/71 H 100 03/29/19 21:51 03/29/19 21:51 03/29/19 21:51 03/29/19 21:51 03/29/19 21:51 - Physical Exam HTN at presentation (resolved on re-examination), pt afebrile. Pt in NAD, overweight body habitus. Pt alert and oriented x3. sheetrock applicator generally intact, muscular strength and sensation intact. No midline spinal tenderness, step-offs, or crepitus. Head normocephalic, atraumatic. Eyes PERRLA, EOMI. Oropharynx without erythema or exudates, no LAD b/l. No nasal congestion. Hearing intact. Clear heart sounds, S1/S2, no JVD, b/l pedal edema, or heart murmur. Clear lung sounds, no respiratory distress, wheezes, crackles, or accessory muscle use. No abdominal or CVA tenderness to palpation, no rebound, no guarding. Abdomen soft, non-distended, and with normoactive bowel sounds. Skin without jaundice or rash. 03/30/19 02:29 <Anna Brantley - Last Filed: 03/30/19 02:34> ED Treatment Course - LABORATORY CBC & Chemistry Diagram: 03/29/19 22:10 03/29/19 22:10 - ADDITIONAL ORDERS Additional order review: Laboratory Results 03/29/19 03/29/19 22:10 22:10 Sodium 138 Potassium 4.5 Chloride 100 Carbon Dioxide 34 H Anion Gap 4 L BUN 13.1 Creatinine 1.0 Est GFR (CKD-EPI)AfAm 70.42 Est GFR (CKD-EPI)NonAf 60.76 Random Glucose 131 H Calcium 10.2 H Magnesium 2.2 Total Bilirubin 0.3 AST 20 ALT 36 Alkaline Phosphatase 67 Troponin I < 0.02 Total Protein 7.7 Albumin 3.7 Lipase 122 03/29/19 22:10 RBC 4.70 MCV 87.2 MCHC 34.6 RDW 13.5 MPV 8.5 Neutrophils % 85.1 H Lymphocytes % 11.8 Monocytes % 2.7 L Eosinophils % 0.0 Basophils % 0.4 - Medications Given in the ED: ED Medications Discontinued Medications Generic Name Dose Route Start Last Admin Trade Name Freq PRN Reason Stop Dose Admin Famotidine/Sodium Chloride 20 mg in 50 mls @ 100 mls/hr 03/29/19 22:06 22:24 Pepcid 20 Mg Premixed Ivpb - IVPB 03/29/19 22:35 100 mls/hr ONCE ONE Administration Ondansetron HCl 4 mg 03/29/19 22:06 03/29/19 22:24 Zofran Injection IVPUSH 03/29/19 22:07 4 mg ONCE ONE Administration <Jair Boyd - Last Filed: 03/29/19 23:25> - LABORATORY CBC & Chemistry Diagram: 03/29/19 22:10 03/29/19 22:10 <Anna Brantley - Last Filed: 03/30/19 02:34> Medical Decision Making - Medical Decision Making Pt was seen at bedside, also will be seen by attending Dr. Best. Pt presenting with nausea/acidic taste in mouth, worse when lying flat, likely 2/2 GERD and indigestion. Will also evaluate for ACS, electrolyte imbalances, infection. Provided 4 mg IV zofran and 20 mg IV pepcid for improvement of indigestion/ nausea. Will continue to reassess pt and monitor for symptomatic improvement. ECG: NSR, intervals WNL (HR 69, AK 126, QRS 84, QTc 415). TWI in III, with no significant ST segment changes. No significant changes from prior ECG (03/23/2019 ). 03/30/19 02:29 CBC-- mild elevation in WBC, likely 2/2 recent steroid taper CMP generally WNL, chronic CO2 retention; pt O2 saturation 100% on RA with good air movement at this time. Trop <.02 with no new EKG changes Pt improved after interventions, tolerated PO challenge in ED Pt safe for d/c with GI and PCP f/u. Instruction provided to take omeprazole BID , avoid fatty/acidic food. Strict return precautions provided with pt understanding. 03/30/19 02:31 <Anna Brantley - Last Filed: 03/30/19 02:34> Discharge - Discharge Information Problems reviewed: Yes - Admission No <Jair Boyd - Last Filed: 03/29/19 23:25> - Discharge Information Problems reviewed: Yes - Admission No <Anna Brantley - Last Filed: 03/30/19 02:34> - Discharge Information Clinical Impression/Diagnosis: GERD (gastroesophageal reflux disease) Qualifiers: Esophagitis presence: esophagitis presence not specified Qualified Code(s): K21.9 - Gastro-esophageal reflux disease without esophagitis Condition: Improved Disposition: HOME - Additional Discharge Information Prescriptions: Ondansetron [Zofran *Odt*] 4 mg SL BID #14 od.tablet - Follow up/Referral Referrals: Paige Herndon MD [Primary Care Provider] - Justin Ramos MD [Staff Physician] - - Patient Discharge Instructions Patient Printed Discharge Instructions: DI for Nausea -- Adult Additional Instructions: Come back to the emergency department for any new worsening or concerning symptom. Follow up with Dr. Ramos, medical record technician within the week.
[2019-03-29] MEDS ORDERED: FAMOTIDINE 20 MG/50 ML IVPB 20 MG/50 ML MG IVPB ONE ×2 (22:06→22:15)
[2019-03-29] MEDS ORDERED: ONDANSETRON 4 MG/2 ML VIAL IVPUSH ONE (22:06)
[2019-03-29] MEDS ORDERED: ONDANSETRON 4 MG/2 ML VIAL ONE (22:15)
[2019-03-29 22:27] LABS: BASO % 0.4 % (0-2.0); HEMOGLOBIN 14.2 GM/dL (10.7-15.3); LYMPH % 11.8 % (8-40); MCH 30.2 pg (25.7-33.7); MCHC 34.6 g/dl (32.0-36.0); MEAN CELL VOLUME 87.2 fl (80-96); MEAN PLT VOLUME 8.5 fl (7.5-11.1); MONO % 2.7 % (3.8-10.2); NEUT % 85.1 % (42.8-82.8); PLATELET COUNT 309 K/MM3 (134-434); RDW 13.5 % (11.6-15.6); WHITE BLOOD COUNT 12.5 K/mm3 (4.0-10.0)
[2019-03-29 22:41] LABS: ALBUMIN 3.7 g/dl (3.4-5.0); BILIRUBIN,TOTAL 0.3 mg/dL (0.2-1); BLOOD UREA NITROGEN 13.1 mg/dL (7-18); CALCIUM 10.2 mg/dL (8.5-10.1); MAGNESIUM 2.2 mg/dL (1.8-2.4); POTASSIUM 4.5 mmol/L (3.5-5.1); TOT PROT 7.7 g/dl (6.4-8.2)
--- NOTE | 2019-03-29 23:29 | PDOC ---
Attending Attestation - Resident Resident Name: Anna Brantley - ED Attending Attestation I have performed the following: I have examined & evaluated the patient, The case was reviewed & discussed with the resident, I agree w/resident's findings & plan - HPI HPI: 03/29/19 23:24 see resident hpi 03/29/19 23:25 - Physicial Exam PE: 03/29/19 23:25 agree with resident exam - Medical Decision Making 03/29/19 23:59-year-old female status post recent admission for asthma exacerbation post recent course of prednisone with some stomach upset and indigestion Labs reviewed, EKG unremarkable Patient has no abdominal pain or tenderness on exam Plan for p.o. challenge and DC home with Herber She is currently on omeprazole
[2019-03-29 23:40] VITALS: BP 148/86; PULSE 63
--- NOTE | 2019-03-30 14:42 | EKG ---
Test Reason : Blood Pressure : / mmHG Vent. Rate : 069 BPM Atrial Rate : 069 BPM P-R Int : 126 ms QRS Dur : 084 ms QT Int : 388 ms P-R-T Axes : -14 016 014 degrees QTc Int : 415 ms NORMAL SINUS RHYTHM NORMAL ECG WHEN COMPARED WITH ECG OF 23-MAR-2019 01:48, NO SIGNIFICANT CHANGE WAS FOUND Confirmed by JOSSIE MEEKS MD ([id number]) on 03/30/2019 2:42:15 PM Referred By: Confirmed By:JOSSIE MEEKS MD
== END 2019-03-29 23:40 | disposition home or self-care (01) ==
LOC: JER 21:30
PROC: 3E033GC Introduction of Other Therapeutic Substance into Peripheral Vein, Percutaneous Approach (ICD-10-PCS; principal; 2019-03-29)
DX: K21.9 Gastro-esophageal reflux disease without esophagitis (principal); I25.10 Atherosclerotic heart disease of native coronary artery without angina pectoris; J45.909 Unspecified asthma, uncomplicated; I10 Essential (primary) hypertension; I50.9 Heart failure, unspecified; E03.9 Hypothyroidism, unspecified
CPT/HCPCS: 36415; 80053; 83690; 83735; 84484; 85025; 93005; 93010; 99283-25

== ENCOUNTER 2021-03-02 09:25 | Emergency (ER) | payer OTHER ==
[2021-03-02 09:49] VITALS: BP 153/84; PULSE 87; TEMP 98; BMI 29.6
[2021-03-02] MEDS ORDERED: DEXAMETHASONE SOD PHOSPHATE 10 MG/1 ML VIAL IVPUSH ONE (10:27)
[2021-03-02] MEDS ORDERED: ALBUTEROL SO4 2.5/IPRATROPIUM 0.5 INH SOL 3 ML VIAL.NEB. NEB ONE (10:33)
[2021-03-02] MEDS ORDERED: DEXAMETHASONE SOD PHOSPHATE 10 MG/1 ML VIAL ONE (10:34)
[2021-03-02] MEDS: ALBUTEROL SO4 2.5/IPRATROPIUM 0.5 INH SOL 3 ML VIAL.NEB. NEB SCH ×4 (10:47→11:46)
== END 2021-03-02 12:15 | disposition home or self-care (01) ==
LOC: JER 09:25
PROC: 3E0F7GC Introduction of Other Therapeutic Substance into Respiratory Tract, Via Natural or Artificial Opening (ICD-10-PCS; principal; 2021-03-02)
PROC: 3E033NZ Introduction of Analgesics, Hypnotics, Sedatives into Peripheral Vein, Percutaneous Approach (ICD-10-PCS; 2021-03-02)
DX: J45.901 Unspecified asthma with (acute) exacerbation (principal); R06.2 Wheezing; Z76.0 Encounter for issue of repeat prescription
CPT/HCPCS: 99284-25; J1100

== ENCOUNTER 2022-02-12 19:52 | Emergency (ER) | payer OTHER ==
[2022-02-12 20:03] VITALS: BP 121/79; PULSE 85; RESP 18; TEMP 98.3; BMI 29.2
[2022-02-12] MEDS ORDERED: ALBUTEROL SO4 2.5/IPRATROPIUM 0.5 INH SOL 3 ML VIAL.NEB. NEB ONE ×2 (22:34→22:50)
[2022-02-12] MEDS ORDERED: SODIUM CHLORIDE 1,000 ML IV STA (22:35)
[2022-02-12 23:15] LABS: HEMATOCRIT 39.2 % (32.4-45.2); HEMOGLOBIN 13.6 GM/dL (10.7-15.3); MCH 29.7 pg (25.7-33.7); MCHC 34.7 g/dl (32.0-36.0); MEAN CELL VOLUME 85.6 fl (80-96); MEAN PLT VOLUME 7.7 fl (7.5-11.1); PLATELET COUNT 331 10^3/uL (134-434); RBC 4.58 M/mm3 (3.60-5.2); RDW 13.3 % (11.6-15.6)
[2022-02-12 23:32] LABS: ALBUMIN 3.8 g/dl (3.4-5.0); BLOOD UREA NITROGEN 11.2 mg/dL (7-18); CALCIUM 9.6 mg/dL (8.5-10.1)
[2022-02-12 23:37] LABS: BILIRUBIN,TOTAL 0.2 mg/dL (0.2-1); TOT PROT 7.7 g/dl (6.4-8.2)
[2022-02-13] MEDS ORDERED: ALBUTEROL SO4 2.5/IPRATROPIUM 0.5 INH SOL 3 ML VIAL.NEB. NEB ONE ×2 (01:56→02:15)
== END 2022-02-13 02:51 | disposition home or self-care (01) ==
LOC: JER 19:52 → JERFT 19:52 → JER 02-13 02:51
PROC: 3E0337Z Introduction of Electrolytic and Water Balance Substance into Peripheral Vein, Percutaneous Approach (ICD-10-PCS; principal; 2022-02-12)
PROC: 3E0F7GC Introduction of Other Therapeutic Substance into Respiratory Tract, Via Natural or Artificial Opening (ICD-10-PCS; 2022-02-12)
DX: J45.901 Unspecified asthma with (acute) exacerbation (principal)
CPT/HCPCS: 36415; 71046-TC-FY; 80053; 84484; 85027; 93005; 93010; 99285-25

== ENCOUNTER 2023-01-18 21:56 | Emergency (ER) | payer OTHER ==
[2023-01-18 22:13] VITALS: BP 161/94; PULSE 83; RESP 18; TEMP 98.5; BMI 29.6
[2023-01-18 22:53] LABS: EPI CELLS 2 /uL (0-25.1); HYALINE CASTS 0 /uL (0-3.1); PH,URINE 6.5 (5.0-8.0); URINE APPEARANCE CLEAR; URINE BACTERIA 197 /uL (0-1359); URINE BILIRUBIN NEGATIVE (NEGATIVE); URINE COLOR YELLOW; URINE GLUCOSE (UA) NEGATIVE (NEGATIVE); URINE KETONE NEGATIVE (NEGATIVE); URINE LEUK ESTERASE 3+ (NEGATIVE); URINE NITRITE NEGATIVE (NEGATIVE); URINE PROTEIN NEGATIVE (NEGATIVE); URINE RBC 44 /uL (0-23.9); URINE UROBILINOGEN 0.2 mg/dL (0.2-1.0); URINE WBC 349 /uL (0-25.8)
[2023-01-18] MEDS ORDERED: SULFAMETHOXAZOLE/TRIMETHOPRIM 800MG/160MG D.S. TABLET PO ONE (22:55)
[2023-01-18] MEDS ORDERED: SULFAMETHOXAZOLE/TRIMETHOPRIM 800MG/160MG D.S. TABLET ONE (22:59)
[2023-01-18] MEDS ORDERED: ACETAMINOPHEN 500 MG TABLET (FP) ONE (23:02)
[2023-01-18] MEDS ORDERED: ACETAMINOPHEN 500 MG TABLET (FP) PO ONE (23:02)
[2023-01-18] MEDS ORDERED: PHENAZOPYRIDINE HCL 100 MG TABLET (FP) PO ONE (23:02)
[2023-01-18] MEDS ORDERED: PHENAZOPYRIDINE HCL 100 MG TABLET (FP) ONE (23:03)
== END 2023-01-18 23:06 | disposition home or self-care (01) ==
LOC: JER 21:56
DX: R35.0 Frequency of micturition (principal); R30.0 Dysuria; N30.01 Acute cystitis with hematuria; R10.30 Lower abdominal pain, unspecified
CPT/HCPCS: 81003; 87086; 87186; 99283-25

== ENCOUNTER 2023-01-24 06:18 | Emergency (ER) | payer OTHER ==
[2023-01-24 06:28] VITALS: RESP 18; BMI 38.4
[2023-01-24 08:31] LABS: URINE APPEARANCE Clear; URINE BILIRUBIN Negative (NEGATIVE); URINE COLOR Yellow; URINE GLUCOSE (UA) Negative (NEGATIVE); URINE KETONE Negative (NEGATIVE); URINE LEUK ESTERASE Negative (NEGATIVE); URINE NITRITE Negative (NEGATIVE); URINE PROTEIN Negative (NEGATIVE); URINE UROBILINOGEN 0.2 mg/dL (0.2-1.0)
[2023-01-24] MEDS ORDERED: IMIPENEM/CILASTATIN SODIUM 500 MG in SODIUM CHLORIDE 100 ML IV ONE (09:03)
[2023-01-24 09:13] LABS: BASO % 0.5 % (0-2.0); EOS % 0.4 % (0-4.5); HEMOGLOBIN 13.8 GM/dL (10.7-15.3); LYMPH % 24.9 % (8-40); MCH 29.8 pg (25.7-33.7); MCHC 34.5 g/dl (32.0-36.0); MEAN CELL VOLUME 86.2 fl (80-96); MEAN PLT VOLUME 7.7 fl (7.5-11.1); MONO % 5.5 % (3.8-10.2); NEUT % 68.7 % (42.8-82.8); PLATELET COUNT 280 10^3/uL (134-434); RBC 4.64 M/mm3 (3.60-5.2); RDW 13.4 % (11.6-15.6); WHITE BLOOD COUNT 9.5 K/mm3 (4.0-10.0)
[2023-01-24 09:18] VITALS: BP 143/49; PULSE 75; TEMP 97.8
[2023-01-24 10:06] LABS: POTASSIUM 4.5 mmol/L (3.5-5.1)
[2023-01-24 10:08] LABS: ALBUMIN 3.8 g/dl (3.4-5.0); CALCIUM 9.3 mg/dL (8.5-10.1)
[2023-01-24 10:09] LABS: BLOOD UREA NITROGEN 9.1 mg/dL (7-18)
[2023-01-24 10:11] LABS: CREATININE 1.2 mg/dL (0.55-1.3)
[2023-01-24 10:13] LABS: BILIRUBIN,TOTAL 0.3 mg/dL (0.2-1); TOT PROT 7.9 g/dl (6.4-8.2)
[2023-01-24] MEDS ORDERED: NITROFURANTOIN MACROCRYSTAL 50 MG CAPSULE (FP) PO SCH (10:15)
[2023-01-24] MEDS ORDERED: NITROFURANTOIN MACROCRYSTAL 50 MG CAPSULE (FP) ONE (10:25)
== END 2023-01-24 10:38 | disposition home or self-care (01) ==
LOC: JER 06:18
DX: R30.0 Dysuria (principal); R35.0 Frequency of micturition; B96.20 Unspecified Escherichia coli [E. coli] as the cause of diseases classified elsewhere
CPT/HCPCS: 36415; 80053; 81003; 85025; 87086; 93005; 93010; 99284-25

== ENCOUNTER 2023-02-06 10:02 | Inpatient (IN) | payer OTHER ==
[2023-02-06] MEDS ORDERED: SODIUM CHLORIDE 0.9% 1000 ML INFUS.BAG IV ONE (11:05)
[2023-02-06 12:06] LABS: HEMOGLOBIN 13.1 GM/dL (10.7-15.3); MCH 29.8 pg (25.7-33.7); MCHC 34.6 g/dl (32.0-36.0); MEAN CELL VOLUME 86.1 fl (80-96); MEAN PLT VOLUME 7.1 fl (7.5-11.1); PLATELET COUNT 360 10^3/uL (134-434); RBC 4.41 M/mm3 (3.60-5.2); RDW 13.7 % (11.6-15.6); WHITE BLOOD COUNT 23.1 K/mm3 (4.0-10.0)
[2023-02-06 12:24] LABS: URINE APPEARANCE CLEAR; URINE BILIRUBIN NEGATIVE (NEGATIVE); URINE COLOR YELLOW; URINE GLUCOSE (UA) NEGATIVE (NEGATIVE); URINE KETONE NEGATIVE (NEGATIVE); URINE LEUK ESTERASE NEGATIVE (NEGATIVE); URINE NITRITE NEGATIVE (NEGATIVE); URINE PROTEIN NEGATIVE (NEGATIVE); URINE UROBILINOGEN 0.2 mg/dL (0.2-1.0)
[2023-02-06 12:38] LABS: ALBUMIN 3.6 g/dl (3.4-5.0); BLOOD UREA NITROGEN 9.6 mg/dL (7-18); CALCIUM 9.7 mg/dL (8.5-10.1)
[2023-02-06 12:41] LABS: BILIRUBIN,TOTAL 0.6 mg/dL (0.2-1); CREATININE 0.8 mg/dL (0.55-1.3)
[2023-02-06 12:42] LABS: ANISOCYTOSIS 0; HELMET CELLS 0; HOWELL-JOLLY BODIES 0; MACROCYTOSIS 0; OVALOCYTE 0; ROULEAU 0; SICKELED CELLS 0; TARGET CELLS 0; TEAR DROP CELLS 0; TOXIC GRANULATION 0
[2023-02-06 12:43] LABS: TOT PROT 7.9 g/dl (6.4-8.2)
[2023-02-06] MEDS: DEXTROSE 5%-0.45% SALINE 1,000 ML IV SCH (15:32)
[2023-02-07] MEDS ORDERED: LEVOTHYROXINE NA 50 MCG TABLET (FP) ONE (05:33)
[2023-02-07] MEDS: LEVOTHYROXINE NA 50 MCG TABLET (FP) PO SCH (07:02)
[2023-02-07 09:00] LABS: BASO % 0.9 % (0-2.0); EOS % 2.3 % (0-4.5); HEMATOCRIT 34.6 % (32.4-45.2); HEMOGLOBIN 12.4 GM/dL (10.7-15.3); LYMPH % 32.7 % (8-40); MCH 30.6 pg (25.7-33.7); MCHC 35.7 g/dl (32.0-36.0); MEAN CELL VOLUME 85.6 fl (80-96); MEAN PLT VOLUME 7.3 fl (7.5-11.1); MONO % 7.1 % (3.8-10.2); PLATELET COUNT 331 10^3/uL (134-434); RBC 4.05 M/mm3 (3.60-5.2); RDW 13.4 % (11.6-15.6); WHITE BLOOD COUNT 7.6 K/mm3 (4.0-10.0)
[2023-02-07 09:02] LABS: POTASSIUM 4.4 mmol/L (3.5-5.1)
[2023-02-07 09:10] LABS: BLOOD UREA NITROGEN 11.5 mg/dL (7-18)
[2023-02-07 09:14] LABS: BILIRUBIN,TOTAL 0.3 mg/dL (0.2-1)
[2023-02-07 09:15] LABS: TOT PROT 6.8 g/dl (6.4-8.2)
[2023-02-07] MEDS ORDERED: LISINOPRIL 20 MG TABLET PO SCH (10:00)
[2023-02-07] MEDS: ENOXAPARIN NA (PORCINE) 40 MG/0.4 ML DISP.SYRIN SQ SCH (10:15)
[2023-02-07] MEDS: LISINOPRIL 5 MG TABLET PO SCH (10:16)
[2023-02-07] MEDS: DEXTROSE 5%-0.45% SALINE 1,000 ML IV SCH (15:57)
[2023-02-07] MEDS ORDERED: MAG HYDROX/AL HYDROX/SIMETH 30 ML UNIT-DOSE CUP PO ONE (23:30)
[2023-02-08 01:23] VITALS: RESP 18; BMI 29.5
[2023-02-08] MEDS: DEXTROSE 5%-0.45% SALINE 1,000 ML IV SCH (01:59)
[2023-02-08] MEDS: LEVOTHYROXINE NA 50 MCG TABLET (FP) PO SCH (06:05)
[2023-02-08] MEDS: ENOXAPARIN NA (PORCINE) 40 MG/0.4 ML DISP.SYRIN SQ SCH (09:55)
[2023-02-08] MEDS: LISINOPRIL 5 MG TABLET PO SCH (09:55)
[2023-02-08 14:34] VITALS: BP 122/81; PULSE 77; TEMP 98.2
== END 2023-02-08 16:21 | disposition home or self-care (01) | DRG 690 ==
LOC: JER 10:02 → JERBED 13:47 → J8W 02-07 20:43
PROVIDERS: ADMIT Family Medicine; ATTEND Family Medicine
DX: N30.90 Cystitis, unspecified without hematuria (principal); E87.1 Hypo-osmolality and hyponatremia; I10 Essential (primary) hypertension; K21.9 Gastro-esophageal reflux disease without esophagitis; J45.909 Unspecified asthma, uncomplicated; E03.9 Hypothyroidism, unspecified; D72.829 Elevated white blood cell count, unspecified
CPT/HCPCS: 36415; 74177-TC; 76775-TC; 80053; 81003; 83605; 85025; 93005; 93010; 99285-25; Q9967